=== PATIENT | female | born 2000 | race Two or more races ===

== ENCOUNTER 2022-10-17 11:31 | Emergency (ER) | payer OTHER ==
[2022-10-17 13:38] LABS: CARBON DIOXIDE,CO2 27.8 mmol/L (21.0-32.0); POTASSIUM,K 4.4 mmol/L (3.5-5.1)
[2022-10-17] MEDS ORDERED: Iopamidol 755 MG/ML 500 ML Multipack Bottle IVPUSH ONE (14:19)
== END 2022-10-17 18:17 | disposition home or self-care (01) ==
LOC: MW.ED 11:31
DX: R10.31 Right lower quadrant pain (principal); Z72.0 Tobacco use
CPT/HCPCS: 36415; 74177; 76856; 80053; 81001; 84703; 85025; 99284; Q9967

== ENCOUNTER 2023-09-07 23:26 | Emergency (ER) | payer MEDICAID ==
[2023-09-08] MEDS: Doxycycline 100 MG Cap PO ONE (00:01)
== END 2023-09-08 00:14 ==
LOC: MW.ED 23:26
DX: N76.4 Abscess of vulva (principal); Z90.49 Acquired absence of other specified parts of digestive tract; Z75.8 Other problems related to medical facilities and other health care
CPT/HCPCS: 99284; A9270; 99283

== ENCOUNTER 2023-12-17 09:51 | Emergency (ER) | payer MEDICAID ==
[2023-12-17] MEDS: Polyethylene Glycol 3350 Powder 17 GM Packet PO ONE (11:17)
[2023-12-17] MEDS: Magnesium Citrate Solution 296 ML Bottle PO ONE (11:18)
== END 2023-12-17 11:28 | disposition home or self-care (01) ==
LOC: MW.ED 09:51
DX: K59.00 Constipation, unspecified (principal); Z75.8 Other problems related to medical facilities and other health care
CPT/HCPCS: 74018; 99283; A9270; 99284

== ENCOUNTER 2023-12-18 11:31 | Emergency (ER) | payer MEDICAID ==
[2023-12-18] MEDS: Sodium Chloride 0.9% 1,000 ML IV ONE (12:34)
[2023-12-18 12:39] LABS: BASOPHILS ABSOLUTE AUTO 0.07 K/uL (0.00-0.20); BASOPHILS PERCENT AUTO 0.7 % (0.0-1.0); EOSINOPHILS PERCENT AUTO 2.8 % (0.0-6.0); HEMATOCRIT 45.4 % (37.0-47.0); HEMOGLOBIN 14.6 g/dL (12.0-16.0); IMMATURE GRAN ABSOLUTE AUTO 0.03 K/uL (0.00-0.05); IMMATURE GRAN PERCENT AUTO 0.3 % (0.0-0.4); LYMPHOCYTES ABSOLUTE AUTO 2.36 K/uL (1.00-4.80); LYMPHOCYTES PERCENT AUTO 22.2 % (24.0-44.0); MEAN CORPUSCULAR HEMOGLOBIN 28.5 pg (28.0-32.0); MEAN CORPUSCULAR HGB CONC 32.2 g/dL (32.0-36.0); MEAN CORPUSCULAR VOLUME 88.5 fL (83.0-99.0); MONOCYTES ABSOLUTE AUTO 0.66 K/uL (0.00-0.80); MONOCYTES PERCENT AUTO 6.2 % (0.0-8.0); NEUTROPHILS ABSOLUTE AUTO 7.23 K/uL (1.80-7.70); NEUTROPHILS PERCENT AUTO 67.8 % (41.0-71.0); PLATELET COUNT,PLT 304 K/uL (150-400); RED BLOOD CELL COUNT 5.13 M/uL (4.10-5.30); WHITE BLOOD CELL COUNT,WBC 10.65 K/uL (3.9-11.3)
[2023-12-18 13:25] LABS: ALBUMIN 3.9 g/dL (3.4-5.0); BILIRUBIN TOTAL 0.6 mg/dL (0.2-1.0); CALCIUM 9.2 mg/dL (8.5-10.1); CARBON DIOXIDE,CO2 27.1 mmol/L (21.0-32.0); CREATININE 0.7 mg/dL (0.6-1.0); EST CRCL DRUG DOSING (CG) 104.28 mL/min; POTASSIUM,K 4.4 mmol/L (3.5-5.1); PROTEIN TOTAL,TP 7.8 g/dL (6.4-8.2)
[2023-12-18] MEDS: Iopamidol 755 MG/ML 500 ML Multipack Bottle IVPUSH STA (16:00)
[2023-12-18] MEDS: Lactulose Soln 10 GM/15 ML 15 ML UD Cup PO ONE (17:00)
== END 2023-12-18 17:05 ==
LOC: MW.ED 11:31
DX: K59.00 Constipation, unspecified (principal); Z75.8 Other problems related to medical facilities and other health care; Z90.49 Acquired absence of other specified parts of digestive tract
CPT/HCPCS: 36415; 74177; 80053; 84703; 85025; 99284; A9270; J7030; Q9967

== ENCOUNTER 2024-02-10 23:25 | Emergency (ER) | payer MEDICAID, OTHER ==
[2024-02-10] MEDS: Fluconazole 150 MG Tab PO ONE (23:47)
== END 2024-02-11 00:10 ==
LOC: MW.ED 23:25
DX: B37.31 Acute candidiasis of vulva and vagina (principal); Z75.8 Other problems related to medical facilities and other health care; Z90.49 Acquired absence of other specified parts of digestive tract
CPT/HCPCS: 99283; A9270